=== PATIENT | female | born 1945 | race Caucasian/White ===

== ENCOUNTER 2018-11-11 17:31 | Emergency (ER) | payer MEDICARE ==
[~2018-11-11] VITALS: Ht 157.5 cm; Wt 72.6 kg
[2018-11-11] MEDS ORDERED: NORCO 5-325 TA1 EAC1 PO (17:42)
[2018-11-11] MEDS ORDERED: COZAAR 25 MG TA25 M1 PO (17:42)
[2018-11-11] MEDS ORDERED: NAPROSYN500 MG PO (17:42)
[2018-11-11 18:54] VITALS: BP 143/38
== END 2018-11-11 18:55 | disposition home or self-care (01) ==
LOC: M.ERS 17:31
DX: S01.81XA Laceration without foreign body of other part of head, initial encounter (principal); I10 Essential (primary) hypertension; M19.90 Unspecified osteoarthritis, unspecified site; W10.8XXA Fall (on) (from) other stairs and steps, initial encounter; Y93.89 Activity, other specified; Y92.89 Other specified places as the place of occurrence of the external cause; Y99.8 Other external cause status